=== PATIENT | male | born 2000 | race Asian ===

== ENCOUNTER 2021-11-03 16:48 | Emergency (ER) | payer SELFPAY ==
[2021-11-03 17:33] VITALS: BP 118/72; PULSE 87; RESP 17; TEMP 37.1; O2SAT 98; BMI 23.6
--- NOTE | 2021-11-03 17:38 | HMH.EDUTC ---
[facility] [place] Disposition Clinical Impression: Otitis media Qualifiers: Otitis media type: unspecified Laterality: left Qualified Code(s): H66.92 - Otitis media, unspecified, left ear Disposition: Home, Self-Care Condition on Discharge: Good Instructions: Middle Ear Infection, DI for Fever (Symptom) -- Adult, Amoxicillin Additional Instructions: *Monitor Temp, Over the counter Motrin or Tylenol as directed/as needed Tylenol every 4 hours and Motrin every 6 hours (as long as your family doctor has told you that you can take it) for fever or pain. and straight to ER if unable to lower temp less than 101.0 after medication given *Warm salt water gargles may help to soothe the throat *Throat Lozenges *Warm fluids like tea with honey may help to soothe the throat *Sleep elevated *Humidifier/Vaporizer Your throat swab was sent for culture. Those results are typically sent to your primary care. Be sure to follow up in 2-3 days with your family doctor/primary care physician if no improvement so they can review those result and treat if necessary. If you don?t have a primary care doctor, I recommend you get one but in the mean time, you will have to return to a walk in clinic Follow up IMMEDIATELY for new or worsening symptoms or no Noticeable improvement over the next 48-72 hours. 911 for difficulty breathing or swallowing You were tested for today for COVID19 your test result should be back in the next 24-48 hours, your results will be available for viewing on the [facility] Prescriptions: Amoxicillin [Amoxicillin 500mg Cap] 500 mg PO TID #30 cap Transmission Status: Pending to [facility]/pharmacy #[id number] Referrals: Provider,MD Nataly [Primary Care Provider] - As needed Juan David Pandey MD [Physician] - Don Whitehead MD [Physician] - Forms: Work/School Release Medical Decision Making - Jeffrey Inquiry Pt receiving controlled substance: No Jeffrey was queried for this patient: No Vital Signs: 11/03/21 17:33 Temperature 98.8 F Temperature Source Oral Pulse Rate [Left Radial] 87 Respiratory Rate 17 Blood Pressure [Right Arm] 118/72 Blood Pressure Mean [Right Arm] 87 02 Sat by Pulse Oximetry 98 - Lab Data Lab Results 11/03/21 17:14: Group A Strep Rapid Negative Orders (Tests/Meds): ORDERS Category Date Time Status Full Resp Panel w/COVID ([facility]) Routine Lab 11/03/21 17:14 Received Strep Screen Confirmation Stat Micro 11/03/21 17:14 Received [facility] UTC HPI - General Stated complaint: sore throat,cough RAMÍREZ Time Seen by Provider: 11/03/21 17:38 Description of Symptoms (Recalled from Triage Doc. by RN): patient comes in today because he was exposed to rsv. patient has been having headache, sore throat, runy nose, cough, nause, vomitting, chills and aches since last . HEENT Symptoms (Recalled from RN notes): Yes Resp Symptoms (Recalled from RN notes): Yes Skin Symptoms (Recalled from RN notes): No MS Symptoms (Recalled from RN notes): No Functional Status (Recalled from RN notes): wnl - History of Present Illness Provider Complaint: Patient states that he was around someone that had RSV and wanted to get tested States that he has also been having pain in his ears, sore throat, runny nose, cough and body aches and chills worried about strep throat and COVID States that today he was still not feeling well so he came in - Related Data Previous Rx's Medication Instructions Recorded Amoxicillin [Amoxicillin 500mg 500 mg PO TID #30 cap 11/03/21 Cap] Allergies Allergy/AdvReac Type Severity Reaction Status Date / Time No Known Allergies Allergy Verified 11/03/21 17:39 - Worker's Comp Is this a Worker's Comp case?: No [facility] History - Hepatitis A Screen Attestation statement:: This patient has been screened for Hepatitis A risk factors. I have reviewed the patient's past medical history: Yes ROS Obtained: Yes All systems reviewed & no additional complaints, Ye
[2021-11-03 17:50] LABS: Adenovirus,PCR Not Detected (NotDetected); Bordetella Pertussis Not Detected (NotDetected); Chlamydophila Pneumoniae, PCR Not Detected (NotDetected); Coronavirus 19, PCR Not Detected (NotDetected); Coronavirus 229E Not Detected (NotDetected); Coronavirus NL63 Not Detected (NotDetected); Coronavirus OC43 Not Detected (NotDetected); Coronovirus HKU1,PCR Not Detected (NotDetected); Human Metapneumovirus Not Detected (NotDetected); Influenza A, PCR Not Detected (NotDetected); Influenza AH1, 2009 Not Detected (NotDetected); Influenza AH1, PCR Not Detected (NotDetected); Influenza AH3,PCR Not Detected (NotDetected); Influenza B, PCR Not Detected (NotDetected); Mycoplasma Pneumoniae, PCR Not Detected (NotDetected); Parainfluenza 1, PCR Not Detected (NotDetected); Parainfluenza 2, PCR Not Detected (NotDetected); Parainfluenza 3, PCR Not Detected (NotDetected); Parainfluenza 4, PCR Not Detected (NotDetected); Rhinovirus/Enterovirus Not Detected (NotDetected)
[2021-11-03 18:07] LABS: Strep Scrn Group A (Rapid) Negative (Negative)
[2021-11-03 18:15] VITALS: BP 118/72; PULSE 87; RESP 17; TEMP 37.1
[2021-11-03 20:37] LABS: Respiratory Syncytial Virus Detected (NotDetected)
== END 2021-11-03 18:16 | disposition home or self-care (01) ==
PROVIDERS: Emergency Provider Nurse Practitioner
DX: H66.92 Otitis media, unspecified, left ear (principal); B97.4 Respiratory syncytial virus as the cause of diseases classified elsewhere; J02.9 Acute pharyngitis, unspecified; R51.9 Headache, unspecified; R11.2 Nausea with vomiting, unspecified; M79.10 Myalgia, unspecified site; Z20.822 Contact with and (suspected) exposure to COVID-19
CPT/HCPCS: 87430; 87581; 87632; 87798; 99213; C9803; G0463; U0003; U0005